=== PATIENT | male | born 1975 | race Caucasian/White ===

== ENCOUNTER 2020-12-14 22:21 | Emergency (ER) | payer MEDICAID ==
[~2020-12-14] VITALS: Ht 188 cm; Wt 122.0 kg
[2020-12-14] MEDS ORDERED: SODIUM CHLORIDE 0.9% 1,000 ML IV ONE (23:15)
[2020-12-14 23:34] LABS: BASOPHILS % 1.2 % (0.0-2.0); EOSINOPHILS % 6.7 % (0.0-5.0); HEMATOCRIT. 48.5 % (42.0-52.0); HEMOGLOBIN. 16.3 g/dL (14.0-18.0); LYMPHOCYTES % 30.2 % (20.0-50.0); MEAN CORPUSCULAR HEMOGLOBIN 29.9 pg (28.0-32.0); MEAN CORPUSCULAR VOLUME 89.3 fL (80.0-94.0); MEAN PLATELET VOLUME 8.4 fl (7.4-10.4); MONOCYTES % 7.7 % (2.0-8.0); NEUTROPHILS % 54.2 % (40.0-76.0); PLATELET 264 x1000/uL (130-400); RED BLOOD CELL COUNT 5.43 mill/uL (4.7-6.1); RED CELL DISTRIBUTION WIDTH 12.9 % (11.6-14.6)
[2020-12-14 23:40] LABS: CHLORIDE 107 mEq/L (98-107)
[2020-12-14 23:44] LABS: ETHANOL BLOOD 243 mg/dL
[2020-12-14 23:48] LABS: BETA HYDROXYBUTYRATE 0.1 mMol/L (0.0-0.3)
[2020-12-15 00:45] VITALS: BP 102/63
== END 2020-12-15 01:14 | disposition home or self-care (01) ==
LOC: ER 22:21
DX: E11.65 Type 2 diabetes mellitus with hyperglycemia (principal); T51.0X1A Toxic effect of ethanol, accidental (unintentional), initial encounter; F10.129 Alcohol abuse with intoxication, unspecified; R45.1 Restlessness and agitation; F91.8 Other conduct disorders; Y90.8 Blood alcohol level of 240 mg/100 ml or more; Z63.8 Other specified problems related to primary support group; Y92.39 Other specified sports and athletic area as the place of occurrence of the external cause
CPT/HCPCS: 36415; 71045; 80053; 80320; 82010; 83690; 85025; 96360; 99284; J7030; G0480